=== PATIENT | male | born 1970 | race Caucasian/White ===

== ENCOUNTER 2018-09-02 19:51 | Inpatient (IN) ==
[2018-09-02] MEDS ORDERED: CloNIDine Tab 0.1 MG TABLET PO ONE (19:57)
[2018-09-02] MEDS ORDERED: NICOTINE 21 MG /DAY PATCH TRANSDERM ONE (19:59)
[2018-09-02] MEDS ORDERED: FUROSEMIDE 10 MG/1 ML - 4 ML IVP ONE (19:59)
--- NOTE | 2018-09-02 19:59 | PDOC ---
Gen Adult / Medical Screen HPI - General Chief Complaint: General Medical Stated Complaint: REACTION TO MEDICATION, DYSPNEA Date Seen by Provider: 09/02/18 Time Seen by Provider: 19:53 Source: POSITIVE: Patient Exam Limitations: POSITIVE: No limitations Nurse's Notes Reviewed & Considered: Yes - History of Present Illness Initial Comments: This is a well-developed, well-nourished, 48-year-old male, complaining of chest pain, shortness of breath, and swelling. Patient developed swelling of his extremities, particularly his lower extremities and abdomen on Sunday. On Sunday he began to develop shortness of breath which has gotten worse. He now has chest pain that he describes as pressure, swelling to the xiphoid process, some increased anxiety, no headache, no sore throat, he does have a cough, no nausea vomiting or diarrhea, no hematuria or dysuria but decreased urine output. Approximately a month and a half ago patient was started on lisinopril and metformin. Blood pressure tonight is 199/140. Body Location Affected: REPORTS: Lower Extremity (L), Lower Extremity (R), Chest , Abdomen Timing: REPORTS: Gradual Duration: <1 week Similar Symptoms Previously: No Recent Care Received: REPORTS: Denies Any Prior Injuries Related to Current Complaint?: No - Patient Home Medications Home Medications: Home Medications albuterol sulfate HFA 90 mcg/actuation aerosol inhaler 1 puff INH Q4H #8 g 07/02 budesonide-formoterol HFA 160 mcg-4.5 mcg/actuation aerosol inhaler 2 puff INH BID #10.2 g 07/30/18 lisinopril 20 mg tablet 20 mg PO QDAY #30 tab 07/30/18 sertraline 25 mg tablet 25 mg PO QDAY #50 tab 07/30/18 Metformin HCl [Glucophage] 1,000 mg PO BID 09/02/18 - Patient Allergies Allergies/Adverse Reactions: Allergies 3 Allergy/AdvReac Type Severity Reaction Status Date / Time No Known Drug Allergies Allergy NOT Verified 09/02/18 19:52 APPLICABLE Past Medical History - heen HEENT History: Denies History Cardiovascular History: Denies History Respiratory History: Denies History Gastrointestinal History: Denies History Genitourinary History: Kidney Stones Endocrine History: Denies History Musculoskeletal History: Denies History Neurological History: Denies History Blood Disorders: Denies History Psychiatric History: Denies History Cancer History: Denies History History of MDRO: No Alcohol Use: Rarely In the Past 12 Months, Have Used or Abuse Any Substance: None Previous Surgical History: No Significant Family History: No pertinent family hx ROS - Limitations ROS Limitations: No Limitations Constitution: REPORTS: Denies Symptoms Cardiovascular: REPORTS: Chest Pain Respiratory: REPORTS: Cough Non Productive, Shortness Of Breath Neurological: REPORTS: Denies Neuro Symptoms Gastrointestinal: REPORTS: Abdominal Pain Endocrine: REPORTS: Denies Symptoms Musculoskeletal: REPORTS: Lower Extremity Swelling Genitourinary: REPORTS: Other (Decreased urine output) Eyes: REPORTS: Denies Symptoms ENT: REPORTS: Denies Symptoms Skin: REPORTS: Denies Skin Symptoms Lympathic: REPORTS: Denies Lympathic Symptoms Immunologic: POSITIVE: Denies Symptoms Psychiatric: POSITIVE: Anxiety Gen Adult/Medical Screen Exam - General Appearance General Appearance: POSITIVE: Alert, Cooperative, No Evidence of Trauma, Mild Distress - HEENT HEENT: POSITIVE: Head Inspection Nml, Eyes Inspection Nml, Ears Inspection Nml, Nose Inspection Nml, Oral/Dental Inspect. Nml, Pharynx Inspect. Nml, PERRL, EOMI - Pupils Pupil Size: 4 mm: Bilateral - Neck Neck: POSITIVE: Normal Inspection, Thyroid Normal - Respiratory Respiratory: POSITIVE: No Respiratory Distress, Wheezes - Cardiovascular Cardiovascular: POSITIVE: No Murmur, No Gallop, PMI Normal, Tachycardia Peripheral Pulses: Radial (L): 4+ - Abdomen Abdomen: Soft: (All Quadrants), Normal Bowel Sounds: (All Quadrants), Denies Tenderness: (All Quadrants), No Splenomegaly: (All Quadrants), No Hepatomegaly: (All Quadrants), No Guarding: (All Quadrants), No Rebound: (All Quadrants), No Palpable Pulse: (All Quadrants), No Palpabale Mass: (All Quadrants), No Rigidity : (All Quadrants), Distention: (All Quadrants) - Back Back: POSITIVE: Normal Inspection - Neurological / Psychological Mental Status: POSITIVE: Mood Normal, Affect Normal Orientation: POSITIVE: Oriented x 3 - Skin Skin: POSITIVE: Normal Color, Warm, Dry, No Rash - Extremities Extremity: Non-Tender: (All Extremities), Normal ROM: (All Extremities), Normal Inspection: (All Extremities), Pelvis Stable: (All Extremities) Procedures - Laceration/Wound Repair Did patient have a laceration repair: No Gen Adlt/Medical Scrn Progress - Results Reviewed by me Xrays/CTs/US Reviewed by me: Yes Discussed with Radiologist: Yes Lab Results Reviewed by Me: Yes CBC and BMP: 09/02/18 20:07 09/02/18 20:07 Lab Results:: Laboratory Results 3 09/02/18 09/02/18 09/02/18 20:07 20:07 20:07 WBC 9.78 RBC 5.71 Hgb 17.3 Hct 52.5 H MCV 91.9 H MCH 30.3 MCHC 33.0 RDW Std Deviation 49.3 RDW Coeff of Yennifer 14.8 H Plt Count 265 MPV 11.8 Immature Gran % (Auto) 0.2 Neut % (Auto) 62.9 Lymph % (Auto) 24.0 Dare % (Auto) 9.6 Eos % (Auto) 2.6 Baso % (Auto) 0.7 Immature Gran # (Auto) 0.02 Neut # (Auto) 6.15 Lymph # (Auto) 2.35 Dare # (Auto) 0.94 H Eos # (Auto) 0.25 Baso # (Auto) 0.07 WBC Morphology Comment Normal morphology Plt Morphology Comment Normal morphology RBC Morph Comment Normal morphology D-Dimer 0.74 H Sodium 141 Potassium 4.0 Chloride 109 Carbon Dioxide 24 Anion Gap 8 BUN 19 Creatinine 1.3 Estimated GFR 59 BUN/Creatinine Ratio 14.61 Glucose 151 H Calculated Osmolality 296.0 H Lactic Acid Calcium 8.6 L Magnesium 2.0 Total Bilirubin 0.6 AST 38 ALT 69 Alkaline Phosphatase 56 CK-MB (CK-2) Troponin I Handheld C-Reactive Protein 0.6 NT-Pro-B Natriuret Pep 2790 H Total Protein 6.6 Albumin 3.9 Globulin 2.7 Albumin/Globulin Ratio 1.40 TSH Ur Collection Type Urine Color Urine Clarity Urine pH Ur Specific [place] Urine Protein Urine Glucose (UA) Urine Ketones Urine Occult Blood Urine Nitrate Urine Bilirubin Urine Urobilinogen Ur Leukocyte Esterase Urine RBC Urine WBC Ur Squamous Epith Cells Ur Renal Epithelial Cell Urine Crystals Urine Bacteria Urine Casts Urine Mucus Urine Trichomonas Urine Yeast Ur Culture Indicated? 3 09/02/18 09/02/18 09/02/18 20:07 20:07 20:07 WBC RBC Hgb Hct MCV MCH MCHC RDW Std Deviation RDW Coeff of Yennifer Plt Count MPV Immature Gran % (Auto) Neut % (Auto) Lymph % (Auto) Dare % (Auto) Eos % (Auto) Baso % (Auto) Immature Gran # (Auto) Neut # (Auto) Lymph # (Auto) Dare # (Auto) Eos # (Auto) Baso # (Auto) WBC Morphology Comment Plt Morphology Comment RBC Morph Comment D-Dimer Sodium Potassium Chloride Carbon Dioxide Anion Gap BUN Creatinine Estimated GFR BUN/Creatinine Ratio Glucose Calculated Osmolality Lactic Acid 2.1 Calcium Magnesium Total Bilirubin AST ALT Alkaline Phosphatase CK-MB (CK-2) 1.99 Troponin I Handheld 0.030 C-Reactive Protein NT-Pro-B Natriuret Pep Total Protein Albumin Globulin Albumin/Globulin Ratio TSH 3.00 Ur Collection Type Urine Color Urine Clarity Urine pH Ur Specific [place] Urine Protein Urine Glucose (UA) Urine Ketones Urine Occult Blood Urine Nitrate Urine Bilirubin Urine Urobilinogen Ur Leukocyte Esterase Urine RBC Urine WBC Ur Squamous Epith Cells Ur Renal Epithelial Cell Urine Crystals Urine Bacteria Urine Casts Urine Mucus Urine Trichomonas Urine Yeast Ur Culture Indicated? 3 09/02/18 20:47 WBC RBC Hgb Hct MCV MCH MCHC RDW Std Deviation RDW Coeff of Yennifer Plt Count MPV Immature Gran % (Auto) Neut % (Auto) Lymph % (Auto) Dare % (Auto) Eos % (Auto) Baso % (Auto) Immature Gran # (Auto) Neut # (Auto) Lymph # (Auto) Dare # (Auto) Eos # (Auto) Baso # (Auto) WBC Morphology Comment Plt Morphology Comment RBC Morph Comment D-Dimer Sodium Potassium Chloride Carbon Dioxide Anion Gap BUN Creatinine Estimated GFR BUN/Creatinine Ratio Glucose Calculated Osmolality Lactic Acid Calcium Magnesium Total Bilirubin AST ALT Alkaline Phosphatase CK-MB (CK-2) Troponin I Handheld C-Reactive Protein NT-Pro-B Natriuret Pep Total Protein Albumin Globulin Albumin/Globulin Ratio TSH Ur Collection Type Voided specimen Urine Color Yellow Urine Clarity Clear Urine pH 5.5 Ur Specific [place] 1.025 Urine Protein >300 A Urine Glucose (UA) Negative Urine Ketones Negative Urine Occult Blood Negative Urine Nitrate Negative Urine Bilirubin Negative Urine Urobilinogen 0.2 Ur Leukocyte Esterase Negative Urine RBC None Urine WBC None Ur Squamous Epith Cells None Ur Renal Epithelial Cell None Urine Crystals Few Urine Bacteria None Urine Casts None Urine Mucus Moderate Urine Trichomonas None Urine Yeast None Ur Culture Indicated? Culture not set EKG Interpreted/Reviewed By Me:: Yes (Sinus Tach, 105bpm, no ST elevation) EKG Interpretation:: POSITIVE: Abnormal EKG - Patient's Progress Re-Examine Time: 21:37 Status: POSITIVE: Improved - Consult Consult (If Yes, Name of Consulting MD & Time Called): Yes (Dr. Mazariegos, 2130hrs) Consulting MD will see pt:: POSITIVE: [facility] [place] Admit Counseled: POSITIVE: Patient, RE: Lab Results, RE: Radiology Results, RE: DX, RE : Need for F/U Patient Care Time - Estimated PCT Patient Care Time (In Minutes): 45 Vital Signs - Recent Vital Signs Vital Signs: Vital Signs (Last 8 hours) Temp Pulse Pulse Resp BP Pulse Ox 09/02/18 20:22 95 18 99 09/02/18 20:21 94 18 99 09/02/18 19:51 97.4 F 114 H 20 199/141 97 - VS Reviewed Vital Signs Reviewed: Yes Discharge Clinical Impression: CHF (congestive heart failure) Discharge Disposition: Admit to Inpatient Condition: Stable Follow Up With: JUWAN JUSTICE [Primary Care Provider] - Date Decision to Admit to Inpatient: 09/02/18 Time Decision to Admit to Inpatient: 21:38
[2018-09-02] MEDS ORDERED: IPRATROPIUM/ALBUTEROL SULFATE 3 ML NEB NEB ONE (20:05)
[2018-09-02 20:12] LABS: BASOPHILS # (AUTO) 0.07 10*3/UL; BASOPHILS % (AUTO) 0.7 % (0-1); EOSINOPHILS # (AUTO) 0.25 10*3/UL; EOSINOPHILS % (AUTO) 2.6 % (0-8); Hematocrit [HCT] 52.5 % (42.0-52.0); Hemoglobin [HGB] 17.3 g/dL (14.0-18.0); LYMPHOCYTES # (AUTO) 2.35 10*3/uL; MEAN CORPUSCULAR HEMOGLOBIN 30.3 PG (27-31); MEAN CORPUSCULAR VOLUME 91.9 FL (80-90); MEAN PLATELET VOLUME 11.8 FL (7.4-12.2); MONOCYTES # (AUTO) 0.94 10*3/UL (0.3-0.8); MONOCYTES % (AUTO) 9.6 % (5-15); NEUTROPHILS # (AUTO) 6.15 10*3/UL; NEUTROPHILS % (AUTO) 62.9 % (50-80); RED BLOOD COUNT 5.71 10^6/uL (4.70-6.10)
--- NOTE | 2018-09-02 20:12 | EKG ---
[address] [address] Measurements Intervals [place] Rate: 105 P: 61 MO: 179 QRS: 28 QRSD: 110 T: 45 QT: 370 QTc: 431 Interpretive Statements SINUS TACHYCARDIA LEFT ATRIAL ENLARGEMENT No previous ECG available for comparison Electronically Signed On 09-03-18 16:08:40 MST by Darrick Medellin [email or web address]
[2018-09-02 20:15] LABS: PLATELET MORPHOLOGY COMMENT NORMAL MORPHOLOGY (NORM); RBC MORPHOLOGY COMMENT NORMAL MORPHOLOGY (NORM); WBC MORPHOLOGY COMMENT NORMAL MORPHOLOGY (NORM)
[2018-09-02 20:23] LABS: BUN/CREATININE RATIO 14.61 (6-20); SERUM ALBUMIN 3.9 g/dL (3.5-4.8)
[2018-09-02 20:45] LABS: BILIRUBIN,URINE NEGATIVE (NEG); CLARITY,URINE CLEAR (CLEAR); COLOR,URINE YELLOW (Y); GLUCOSE, URINE (UA) NEGATIVE (NEG); OCCULT BLOOD,URINE NEGATIVE (NEG); PH,URINE 5.5 (5.0-8.5); PROTEIN,URINE >300 mg/dl (NEG); UROBILINOGEN,URINE 0.2 EU/dL (0.2)
[2018-09-02 20:47] LABS: URINE CRYSTALS FEW; URINE SAMPLE TYPE VOIDED SPECIMEN
--- NOTE | 2018-09-02 20:52 | DI ---
XR CXR 1VW,09/02/2018 7:59 PM: Clinical History: Shortness of breath Previous Exam: None at this facility. Findings: A single frontal radiograph of the chest is obtained, and demonstrate clear lungs. The cardiomediasti num is prominent. The bony thorax is unremarkable. Impression: Cardiomegaly otherwise unremarkable.
--- NOTE | 2018-09-02 21:13 | DI ---
EXAM: CT Angiography Chest With Intravenous Contrast CLINICAL HISTORY: Shortness of breath TECHNIQUE: Axial computed tomographic angiography images of the chest with intravenous contrast using pulmonary embolism protocol. MIP reconstructed images were created and reviewed. COMPARISON: No relevant prior studies available. FINDINGS: Pulmonary arteries: No evidence of pulmonary embolus. Aorta: No thoracic aortic aneurysm. Lungs: Minimal pulmonary vascular congestion. Atelectasis and scarring noted within the lingula and lung bases. No mass. Pleural space: Unremarkable. No significant effusion. No pneumothorax. Heart: Trace pericardial effusion. No evidence of RV dysfunction. Bones/joints: No acute fracture. No dislocation. Soft tissues: Unremarkable. Lymph nodes: Subcentimeter mediastinal and hilar lymph nodes, likely reactive. Intraperitoneal space: Trace ascites noted within the upper abdomen. IMPRESSION: Minimal pulmonary vascular congestion.
--- NOTE | 2018-09-02 22:54 | PDOC ---
HPI - History of Present Illness Date of Service: 09/02/18 Time of Service: 22:49 Chief Complaint: Shortness of breath History of Present Illness: This very pleasant 48-year-old male who recently has been diagnosed with diabetes mellitus type II, hypertension, probable obstructive sleep apnea, amongst other issues. He comes in tonight stating that on Sunday he noticed that he was having increased leg swelling and increased shortness of breath. His symptoms have persisted and he developed some chest pressure he thinks from fluid build up going into his abdomen and into his chest. In the emergency room he had a chest x-ray, CTA of the chest, and a brain natruretic peptide which was elevated and suggestive of congestive heart failure. He was given Lasix and urinated over 800 mL in the emergency room and felt better after that. Due to this constellation of symptoms, I was asked to admit the patient. He does smoke. He has hypertension, diabetes, high cholesterol, and a positive family history for coronary artery disease. He denies any nausea or vomiting with all this. He's never had symptoms like this before. He states that couple months back, he was told by his father that he might have sleep apnea so the patient did arrange testing but the first test did not go well so he has that rescheduled for this Sunday. He is not sure what made him feel worse but did note again that he was quite short of breath and noticed that it seemed to be worse with increasing fluid in his lower extremities and into his chest region. He denied orthopnea at home, but he sleeps on his abdomen. Shortness breath this seemed to be worse with exertion. Past Medical History Medical History: 1. Hypertension. 2. Recently diagnosed diabetes mellitus type II. 3. Hypercholesteremia. 4. Tobacco abuse. 5. Family history of coronary artery disease Surgical History: 1. [place] teeth pulled. 2. Nephrolithiasis with ureteral stents placed which were eventually removed. Pertinent Family History: Significant for coronary artery disease and his mother after a CABG at age 56 Past Social History: Smokes pack per day. . Has children that are healthy. 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 Does not drink significant amounts of alcohol. Tobacco Use: Current Every Day Smoker Do you dip or chew tobacco: No In the Past 12 Months, Have Used or Abuse Any of the Following Substance: None Alcohol Use: Occasionally Medication / Allergies Home Medications: Home Medications 3 Medication Instructions Recorded Confirmed Type albuterol sulfate HFA 90 1 puff INH Q4H #8 g 07/02/18 09/02/18 Rx mcg/actuation aerosol inhaler budesonide-formoterol HFA 160 2 puff INH BID #10.2 g 07/30/18 09/02/18 Rx mcg-4.5 mcg/actuation aerosol inhaler lisinopril 20 mg tablet 20 mg PO QDAY #30 tab 07/30/18 09/02/18 Rx sertraline 25 mg tablet 25 mg PO QDAY #50 tab 07/30/18 09/02/18 Rx Metformin HCl [Glucophage] 1,000 mg PO BID 09/02/18 09/02/18 History Allergies/Adverse Reactions: Allergies 3 Allergy/AdvReac Type Severity Reaction Status Date / Time No Known Drug Allergies Allergy NOT Verified 09/02/18 19:52 APPLICABLE Review of Systems - Review of Systems All Systems: Reviewed & No Additional Complaints Except as Stated (I did a 12 point review systems was negative other than that discussed in history present illness and that noted below.) - Respiratory Respiratory: REPORTS: Dyspnea with Exertion, See HPI - Cardiovascular Cardiovascular: REPORTS: Chest Pain (Chest pressure here tonight, better after diuresis) - Additonal Details Additional ROS Details: Has had erectile dysfunction symptoms. Exam - Vitals Vital Signs: Vital Signs Temperature 97.4 F Temperature Source Temporal Artery Scan Pulse Rate [Pulse Oximeter] 114 Pulse Rate 95 Respiratory Rate 18 Blood Pressure [Left Arm] 199/141 Pulse Ox 99 Oxygen Delivery Method Room Air Height 5 ft 8 in Weight 250 lb - General General Appearance: No Acute Distress, Cooperative, Obese - Head Head Exam: Normal Inspection, Normocephalic, Atraumatic - Eye Eye Exam: POSITIVE: No Scleral Icterus - ENT ENT Exam: POSITIVE: Mucous Membranes Moist - Neck Neck Exam: Normal Inspection, No Lymphadenopathy, No Thyromegaly, JVP is not Raised - Respiratory Respiratory Exam: POSITIVE: Breathing Non Labored, Normal to Percussion and Palpation, Decreased Breath Sounds (In the bases bilaterally) - Cardiovascular Cardiovascular Exam: POSITIVE: No Murmur, No Clicks, No Gallops, No Rubs, Tachycardia, No JVD, +S3 - GI/Abdominal GI/Abdominal Exam: POSITIVE: Normal Bowel Sounds, Non Tender, Non Distended, Soft - Rectal Rectal Exam: POSITIVE: Deferred - External Exam: POSITIVE: Deferred Exam: POSITIVE: Deferred - Extremities Extremities Exam: POSITIVE: No Clubbing Present, No Cyanosis Present, +2 Edema - Back Back Exam: POSITIVE: No CVA Tenderness - Neurological Neurological Exam: POSITIVE: Alert, Oriented x 3, No Facial Droop, Speech Intact / Clear, Moves All Extremities Equally - Psychiatric Psychiatric Exam: POSITIVE: Normal Affect, Normal Mood Results - Labs CBC and BMP: 09/02/18 20:07 09/02/18 20:07 Additional Lab Results: Laboratory Results 09/02/18 09/02/18 09/02/18 Range/Units 20:07 20:07 20:07 WBC 9.78 (4.8-10.8) 10^3/uL RBC 5.71 (4.70-6.10) 10^6/uL Hgb 17.3 (14.0-18.0) g/dL Hct 52.5 H (42.0-52.0) % MCV 91.9 H (80-90) FL MCH 30.3 (27-31) PG MCHC 33.0 (33-37) g/dL RDW Std Deviation 49.3 (39-50) fL RDW Coeff of Yennifer 14.8 H (11.5-14.5) % Plt Count 265 (140-350) 10*3/uL MPV 11.8 (7.4-12.2) FL Immature Gran % (Auto) 0.2 (0-5) % Neut % (Auto) 62.9 (50-80) % Lymph % (Auto) 24.0 (10-50) % Baca % (Auto) 9.6 (5-15) % Eos % (Auto) 2.6 (0-8) % Baso % (Auto) 0.7 (0-1) % Immature Gran # (Auto) 0.02 10*3/UL Neut # (Auto) 6.15 10*3/UL Lymph # (Auto) 2.35 10*3/uL Baca # (Auto) 0.94 H (0.3-0.8) 10*3/UL Eos # (Auto) 0.25 10*3/UL Baso # (Auto) 0.07 10*3/UL WBC Morphology Comment Normal morphology (NORM) Plt Morphology Comment Normal morphology (NORM) RBC Morph Comment Normal morphology (NORM) D-Dimer 0.74 H (0.00-0.59) mg/L Sodium 141 (135-145) meq/L Potassium 4.0 (3.8-5.2) meq/L Chloride 109 (98-112) meq/L Carbon Dioxide 24 (23-33) meq/L Anion Gap 8 (5-20) BUN 19 (7-22) mg/dL Creatinine 1.3 (0.70-1.50) mg/dL Estimated GFR 59 (>60 ml/min/1.73m(2)) BUN/Creatinine Ratio 14.61 (6-20) Glucose 151 H (78-110) mg/dL Calculated Osmolality 296.0 H (267-292) mOsm/kg Lactic Acid (0.70-2.10) MMOL/L Calcium 8.6 L (8.7-10.7) mg/dL Magnesium 2.0 (1.6-2.4) mg/dL Total Bilirubin 0.6 (0.3-1.2) mg/dL AST 38 (21-57) IU/L ALT 69 (21-72) IU/L Alkaline Phosphatase 56 (38-126) IU/L CK-MB (CK-2) (0.00-5.00) NG/ML Troponin I Handheld (< 0.040) ng/mL C-Reactive Protein 0.6 (0.0-0.9) mg/dL NT-Pro-B Natriuret Pep 2790 H (0-125) PG/ML Total Protein 6.6 (6.1-8.0) g/dL Albumin 3.9 (3.5-4.8) g/dL Globulin 2.7 (2.50-4.10) g/dL Albumin/Globulin Ratio 1.40 (1.3-2.0) mg/g TSH (0.2700-4.2000) uIU/mL Ur Collection Type Urine Color (Y) Urine Clarity (CLEAR) Urine pH (5.0-8.5) Ur Specific Gardner (1.005-1.030) Urine Protein (NEG) mg/dl Urine Glucose (UA) (NEG) mg/dL Urine Ketones (NEG) Urine Occult Blood (NEG) Urine Nitrate (NEG) Urine Bilirubin (NEG) Urine Urobilinogen (0.2) EU/dL Ur Leukocyte Esterase (NEG) Urine RBC (NONE) /hpf Urine WBC (NONE) Ur Squamous Epith Cells (NONE) Ur Renal Epithelial Cell (NONE) Urine Crystals Urine Bacteria (NONE) Urine Casts (NONE) Urine Mucus (NONE) Urine Trichomonas (NONE) Urine Yeast (NONE) Ur Culture Indicated? 09/02/18 09/02/18 09/02/18 Range/Units 20:07 20:07 20:07 WBC (4.8-10.8) 10^3/uL RBC (4.70-6.10) 10^6/uL Hgb (14.0-18.0) g/dL Hct (42.0-52.0) % MCV (80-90) FL MCH (27-31) PG MCHC (33-37) g/dL RDW Std Deviation (39-50) fL RDW Coeff of Yennifer (11.5-14.5) % Plt Count (140-350) 10*3/uL MPV (7.4-12.2) FL Immature Gran % (Auto) (0-5) % Neut % (Auto) (50-80) % Lymph % (Auto) (10-50) % Baca % (Auto) (5-15) % Eos % (Auto) (0-8) % Baso % (Auto) (0-1) % Immature Gran # (Auto) 10*3/UL Neut # (Auto) 10*3/UL Lymph # (Auto) 10*3/uL [place] # (Auto) (0.3-0.8) 10*3/UL Eos # (Auto) 10*3/UL Baso # (Auto) 10*3/UL WBC Morphology Comment (NORM) Plt Morphology Comment (NORM) RBC Morph Comment (NORM) D-Dimer (0.00-0.59) mg/L Sodium (135-145) meq/L Potassium (3.8-5.2) meq/L Chloride (98-112) meq/L Carbon Dioxide (23-33) meq/L Anion Gap (5-20) BUN (7-22) mg/dL Creatinine (0.70-1.50) mg/dL Estimated GFR (>60 ml/min/1.73m(2)) BUN/Creatinine Ratio (6-20) Glucose (78-110) mg/dL Calculated Osmolality (267-292) mOsm/kg Lactic Acid 2.1 (0.70-2.10) MMOL/L Calcium (8.7-10.7) mg/dL Magnesium (1.6-2.4) mg/dL Total Bilirubin (0.3-1.2) mg/dL AST (21-57) IU/L ALT (21-72) IU/L Alkaline Phosphatase (38-126) IU/L CK-MB (CK-2) 1.99 (0.00-5.00) NG/ML Troponin I Handheld 0.030 (< 0.040) ng/mL C-Reactive Protein (0.0-0.9) mg/dL NT-Pro-B Natriuret Pep (0-125) PG/ML Total Protein (6.1-8.0) g/dL Albumin (3.5-4.8) g/dL Globulin (2.50-4.10) g/dL Albumin/Globulin Ratio (1.3-2.0) mg/g TSH 3.00 (0.2700-4.2000) uIU/mL Ur Collection Type Urine Color (Y) Urine Clarity (CLEAR) Urine pH (5.0-8.5) Ur Specific Gardner (1.005-1.030) Urine Protein (NEG) mg/dl Urine Glucose (UA) (NEG) mg/dL Urine Ketones (NEG) Urine Occult Blood (NEG) Urine Nitrate (NEG) Urine Bilirubin (NEG) Urine Urobilinogen (0.2) EU/dL Ur Leukocyte Esterase (NEG) Urine RBC (NONE) /hpf Urine WBC (NONE) Ur Squamous Epith Cells (NONE) Ur Renal Epithelial Cell (NONE) Urine Crystals Urine Bacteria (NONE) Urine Casts (NONE) Urine Mucus (NONE) Urine Trichomonas (NONE) Urine Yeast (NONE) Ur Culture Indicated? 09/02/18 Range/Units 20:47 WBC (4.8-10.8) 10^3/uL RBC (4.70-6.10) 10^6/uL Hgb (14.0-18.0) g/dL Hct (42.0-52.0) % MCV (80-90) FL MCH (27-31) PG MCHC (33-37) g/dL RDW Std Deviation (39-50) fL RDW Coeff of Yennifer (11.5-14.5) % Plt Count (140-350) 10*3/uL MPV (7.4-12.2) FL Immature Gran % (Auto) (0-5) % Neut % (Auto) (50-80) % Lymph % (Auto) (10-50) % Baca % (Auto) (5-15) % Eos % (Auto) (0-8) % Baso % (Auto) (0-1) % Immature Gran # (Auto) 10*3/UL Neut # (Auto) 10*3/UL Lymph # (Auto) 10*3/uL [place] # (Auto) (0.3-0.8) 10*3/UL Eos # (Auto) 10*3/UL Baso # (Auto) 10*3/UL WBC Morphology Comment (NORM) Plt Morphology Comment (NORM) RBC Morph Comment (NORM) D-Dimer (0.00-0.59) mg/L Sodium (135-145) meq/L Potassium (3.8-5.2) meq/L Chloride (98-112) meq/L Carbon Dioxide (23-33) meq/L Anion Gap (5-20) BUN (7-22) mg/dL Creatinine (0.70-1.50) mg/dL Estimated GFR (>60 ml/min/1.73m(2)) BUN/Creatinine Ratio (6-20) Glucose (78-110) mg/dL Calculated Osmolality (267-292) mOsm/kg Lactic Acid (0.70-2.10) MMOL/L Calcium (8.7-10.7) mg/dL Magnesium (1.6-2.4) mg/dL Total Bilirubin (0.3-1.2) mg/dL AST (21-57) IU/L ALT (21-72) IU/L Alkaline Phosphatase (38-126) IU/L CK-MB (CK-2) (0.00-5.00) NG/ML Troponin I Handheld (< 0.040) ng/mL C-Reactive Protein (0.0-0.9) mg/dL NT-Pro-B Natriuret Pep (0-125) PG/ML Total Protein (6.1-8.0) g/dL Albumin (3.5-4.8) g/dL Globulin (2.50-4.10) g/dL Albumin/Globulin Ratio (1.3-2.0) mg/g TSH (0.2700-4.2000) uIU/mL Ur Collection Type Voided specimen Urine Color Yellow (Y) Urine Clarity Clear (CLEAR) Urine pH 5.5 (5.0-8.5) Ur Specific Gardner 1.025 (1.005-1.030) Urine Protein >300 A (NEG) mg/dl Urine Glucose (UA) Negative (NEG) mg/dL Urine Ketones Negative (NEG) Urine Occult Blood Negative (NEG) Urine Nitrate Negative (NEG) Urine Bilirubin Negative (NEG) Urine Urobilinogen 0.2 (0.2) EU/dL Ur Leukocyte Esterase Negative (NEG) Urine RBC None (NONE) /hpf Urine WBC None (NONE) Ur Squamous Epith Cells None (NONE) Ur Renal Epithelial Cell None (NONE) Urine Crystals Few Urine Bacteria None (NONE) Urine Casts None (NONE) Urine Mucus Moderate (NONE) Urine Trichomonas None (NONE) Urine Yeast None (NONE) Ur Culture Indicated? Culture not set - EKG Data -: EKG Interpreted by Me Rate: Tachycardia EKG Shows Normal: Sinus Rhythm - EKG Data EKG Interpretation: Other (The P wave is inverted in V1 and somewhat enlarged suggesting atrial enlargement) - Imaging Status: Image Reviewed by Me (Chest x-ray shows a globular heart, large but it is a portable film. The CT scan on my view shows evidence of pulmonary vascular congestion in the bases.) Assessment and Plan - Patient Problems (1) CHF (congestive heart failure) Current Visit: Yes Status: Acute Code(s): I50.9 - Heart failure, unspecified Qualifiers: Heart failure type: unspecified Heart failure chronicity: acute Qualified Code(s): I50.9 - Heart failure, unspecified (2) Tobacco abuse Current Visit: Yes Status: Acute Code(s): Z72.0 - Tobacco use (3) Tobacco abuse counseling Current Visit: Yes Status: Acute Code(s): Z71.6 - Tobacco abuse counseling (4) Obesity Current Visit: Yes Status: Acute Code(s): E66.9 - Obesity, unspecified Qualifiers: Obesity type: due to excess calories Obesity classification: adult class 2 (BMI 35 - 39.9) Serious obesity comorbidity presence: with serious comorbidity Body mass index: BMI 38.0-38.9 Qualified Code(s): E66.01 - Morbid (severe) obesity due to excess calories; Z68.38 - Body mass index (BMI) 38.0-38.9, adult (5) Diabetes mellitus Current Visit: No Status: Acute Code(s): E11.9 - Type 2 diabetes mellitus without complications Qualifiers: Diabetes mellitus type: type 2 Diabetes mellitus usp insulin use: without usp use Diabetes mellitus complication status: without complication Qualified Code(s): E11.9 - Type 2 diabetes mellitus without complications (6) HTN (hypertension) Current Visit: Yes Status: Acute Code(s): I10 - Essential (primary) hypertension Qualifiers: Hypertension type: essential hypertension Qualified Code(s): I10 - Essential (primary) hypertension (7) Hyperlipidemia Current Visit: Yes Status: Acute Onset Date: 11/07/12 Code(s): E78.5 - Hyperlipidemia, unspecified Qualifiers: Hyperlipidemia type: mixed hyperlipidemia Qualified Code(s): E78.2 - Mixed hyperlipidemia (8) Chest pain Current Visit: Yes Status: Acute Code(s): R07.9 - Chest pain, unspecified Qualifiers: Chest pain type: unspecified Qualified Code(s): R07.9 - Chest pain, unspecified - Assessment / Plan Additional Assessment/Plan Details: The patient has acute congestive heart failure which is probably right-sided and left-sided based on presentation. He has pulmonary vascular congestion, peripheral edema, an S3 on exam, and warrants a rule out for myocardial infarction and also a stress test to check for coronary artery disease. He may eventually need a heart catheterization but I like to see what his stress test shows first. Diuresis with Lasix. I think he'll need IV doses to start out with. Will replace potassium along with Lasix as well. Continue lisinopril. With congestive heart failure hold off on metformin and use insulin and blood sugar checks. I spoke with the patient a lot about diet, exercise, and lifestyle changes. I spent approximately 25 minutes at bedside counseling about lifestyle changes. I think this ultimately would help the patient eliminate a lot of his medical issues. Specifically, I think the patient would do well to try and quit smoking. In addition, he states that he eats a breakfast from [employer], and then eats a big Mac or some sort of [employer] meal. He does eat [employer] sandwiches frequently as well. Eventually an echocardiogram should be done. Labs in a.m. We did inform the patient that he has diabetes mellitus type II cirrhosis some concern that it could be prediabetes but his hemoglobin A1c is diagnostic. I agree with sleep study, but depending on the progression of this hospital stay that may have to be rescheduled. May need to add another antihypertensive agent. Hold off on beta blockers the patient seems to be about class II-III congestive heart failure with this presentation and like patient to get out of acute congestive heart failure first. Beta martin may be reasonable. However he also has ED symptoms and this could make it worse. Plan to look for myocardial infarction, conduct chemical stress test to look for coronary artery disease, and diuresis, was discussed with the patient, and he agreed with the plan. Initially he would like to try nicotine patches for smoking cessation here.
[2018-09-02] MEDS ORDERED: ALBUTEROL SULFATE 8.5 GM HFA INHALER INH PRN (23:08)
[2018-09-02] MEDS ORDERED: ASPIRIN 81 MG (BABY) CHEWABLE TABLET PO ONE (23:08)
[2018-09-02] MEDS ORDERED: LIDOCAINE W/ SODIUM BICARB 0.5 ML SYR SUBD PRN (23:08)
[2018-09-02] MEDS ORDERED: CALCIUM CARBONATE 500 MG (TUMS) CHEWABLE TABLET PO PRN (23:08)
[2018-09-02] MEDS ORDERED: ONDANSETRON 4 MG/2 ML VIAL IVP PRN (23:08)
[2018-09-02] MEDS ORDERED: ENOXAPARIN SODIUM 80 MG/0.8 ML SYRINGE SUBCUT SCH (23:08)
[2018-09-03] MEDS ORDERED: Influenza 18-19 Vaccine (6mo+) 60 MCG/0.5 ML SYRINGE IM ONE ×2 (06:37→07:09)
[2018-09-03 06:58] LABS: CHOL/HDL RATIO 6.8 RATIO (0-4.0)
[2018-09-03] MEDS: FUROSEMIDE 10 MG/1 ML - 4 ML IVP SCH ×2 (07:46→13:42)
[2018-09-03] MEDS: POTASSIUM CHLORIDE 20 MEQ TAB PO SCH (08:56)
[2018-09-03] MEDS: Sertraline Tab 50 MG TAB PO SCH (08:56)
[2018-09-03] MEDS: NICOTINE 21 MG /DAY PATCH TRANSDERM SCH (08:57)
[2018-09-03] MEDS: ASPIRIN 81 MG (BABY) CHEWABLE TABLET PO SCH (08:57)
[2018-09-03] MEDS: ENOXAPARIN SODIUM 40 MG/0.4 ML SYRINGE SUBCUT SCH (08:57)
[2018-09-03] MEDS ORDERED: Non-Formulary Drug (Budesonide/Formoterol Fumarate [Symbicort 160-4.5 Mcg Inhaler] 2 PUFF) INH SCH ×2 (09:00→19:00)
[2018-09-03] MEDS ORDERED: LISINOPRIL 20 MG TABLET PO SCH (09:00)
--- NOTE | 2018-09-03 09:05 | PDOC(PROG) ---
Date of Service: 09/03/18 Time of Service: 09:00 Interval History: Subjective Patient came into the hospital because of for swelling in his legs. This been going on for maybe for a few days before he came in. He said he was recently diagnosed with high blood pressure and diabetes. For diabetes he was gradually increasing his metformin. He is on lisinopril for high blood pressure. However because of the swelling he quit taking all of his medication last Sunday. He did feel that there is some tightness in the ribs. Today he does not have the same tightness that he had when he came in. He feels better. There was no chest pain. Objective : Data - Labs CBC and BMP: 09/02/18 20:07 09/02/18 20:07 Objective : Exam - General General Appearance: No Acute Distress, Cooperative, Obese - Head Head Exam: Normal Inspection - Eye Eye Exam: Normal Appearance - ENT ENT Exam: Normal Exam - Neck Neck Exam: Normal Inspection - Respiratory Respiratory Exam: Clear to Auscultation - Bilaterally - Cardiovascular Cardiovascular Exam: RRR - GI/Abdominal GI/Abdominal Exam: Normal Bowel Sounds, Non Tender, Non Distended, Soft, No Organomegaly - Rectal Rectal Exam: Deferred - External Exam: Deferred Exam: Deferred - Extremities Extremities Exam: +2 Edema - Back Back Exam: Normal Inspection - Neurological Neurological Exam: Alert, Oriented x 3, CN II-XII Intact, No Facial Droop, Speech Intact / Clear, Moves All Extremities Equally - Psychiatric Psychiatric Exam: Normal Affect - Integumentary Integumentary Exam: Normal Color Assessment and Plan - Patient Problems (1) CHF (congestive heart failure) Current Visit: Yes Status: Acute Comment: We don't have an echocardiogram here. He will probably need it as an outpatient. Meanwhile we'll treat him clinically as congestive heart failure. Continue Lasix. Put him on low-salt diet. Continue lisinopril. He is scheduled to have another sleep study on Sunday. Code(s): I50.9 - Heart failure, unspecified Qualifiers: Heart failure type: unspecified Heart failure chronicity: acute Qualified Code(s): I50.9 - Heart failure, unspecified (2) HTN (hypertension) Current Visit: Yes Status: Acute Comment: He is on lisinopril and diuretic. I think will watch his blood pressure today and then will decide if need to increase it as an appropriate Code(s): I10 - Essential (primary) hypertension Qualifiers: Hypertension type: essential hypertension Qualified Code(s): I10 - Essential (primary) hypertension (3) Diabetes mellitus Current Visit: No Status: Acute Comment: He Is on sliding scale now. Code(s): E11.9 - Type 2 diabetes mellitus without complications Qualifiers: Diabetes mellitus type: type 2 Diabetes mellitus fdc insulin use: without meterman use Diabetes mellitus complication status: without complication Qualified Code(s): E11.9 - Type 2 diabetes mellitus without complications (4) Tobacco abuse Current Visit: Yes Status: Acute Comment: He is on the nicotine patch Code(s): Z72.0 - Tobacco use (5) Obesity Current Visit: Yes Status: Acute Comment: He need to work on his weight. Code(s): E66.9 - Obesity, unspecified Qualifiers: Obesity type: due to excess calories Obesity classification: adult class 2 (BMI 35 - 39.9) Serious obesity comorbidity presence: with serious comorbidity Body mass index: BMI 38.0-38.9 Qualified Code(s): E66.01 - Morbid (severe) obesity due to excess calories; Z68.38 - Body mass index (BMI) 38.0-38.9, adult (6) Chest pain Current Visit: Yes Status: Acute Comment: Enzymes are negative. He did have the first part of the stress test today. He'll have the resting image tomorrow. Code(s): R07.9 - Chest pain, unspecified Qualifiers: Chest pain type: unspecified Qualified Code(s): R07.9 - Chest pain, unspecified
--- NOTE | 2018-09-03 10:35 | STRESSTEST ---
[facility] Interpretive Statements Patient had lexiscan stress test per protocol, baseline BP was 144/118, heart rate was 104, baseline EKG showed sinus tachycardia with left atrial enlargement, post injection patient did not have symptoms. Maximum BP was 144/118, maximum heart rate was 113, no signifcant EKG changes noted from baseline., Conclusion: No EKG changes noted on the EKG part of lexiscan sterss kacie. await nuclear images. Electronically Signed On 09-04-18 08:20:30 [facility] by Pramod Balderas MD [email or web address]
[2018-09-04 05:55] LABS: BUN/CREATININE RATIO 10.76 (6-20)
[2018-09-04] MEDS: FUROSEMIDE 10 MG/1 ML - 4 ML IVP SCH ×2 (07:18→14:22)
[2018-09-04] MEDS: ENOXAPARIN SODIUM 40 MG/0.4 ML SYRINGE SUBCUT SCH (08:47)
[2018-09-04] MEDS: POTASSIUM CHLORIDE 20 MEQ TAB PO SCH (08:47)
[2018-09-04] MEDS: ASPIRIN 81 MG (BABY) CHEWABLE TABLET PO SCH (08:48)
[2018-09-04] MEDS: Sertraline Tab 50 MG TAB PO SCH (08:48)
[2018-09-04] MEDS: NICOTINE 21 MG /DAY PATCH TRANSDERM SCH (08:53)
[2018-09-04] MEDS ORDERED: LISINOPRIL 20 MG TABLET PO SCH (09:00)
--- NOTE | 2018-09-04 10:15 | PDOC(PROG) ---
Date of Service: 09/04/18 Time of Service: 07:30 Interval History: Subjective Patient feels better. No pain in the chest. Breathing seemed to be fine. Still have swelling in his legs but it's improved compared to when he came in. Denying other symptoms. Objective : Data - Labs CBC and BMP: 09/02/18 20:07 09/04/18 05:15 Objective : Exam - General General Appearance: No Acute Distress, Cooperative, Obese - Head Head Exam: Normal Inspection - Eye Eye Exam: Normal Appearance - ENT ENT Exam: Normal Exam - Neck Neck Exam: Normal Inspection - Respiratory Respiratory Exam: Clear to Auscultation - Bilaterally - Cardiovascular Cardiovascular Exam: RRR - GI/Abdominal GI/Abdominal Exam: Normal Bowel Sounds, Non Tender, Non Distended, Soft, No Organomegaly - Rectal Rectal Exam: Deferred - External Exam: Deferred - Extremities Extremities Exam: +2 Edema - Back Back Exam: Normal Inspection - Neurological Neurological Exam: Alert, Oriented x 3, CN II-XII Intact, No Facial Droop, Speech Intact / Clear, Moves All Extremities Equally - Psychiatric Psychiatric Exam: Normal Affect - Integumentary Integumentary Exam: Normal Color Assessment and Plan - Patient Problems (1) CHF (congestive heart failure) Current Visit: Yes Status: Acute Comment: He is improving. His BNP is down. His weight is improved. We'll continue with IV Lasix. He'll have the resting image today. Code(s): I50.9 - Heart failure, unspecified Qualifiers: Heart failure type: unspecified Heart failure chronicity: acute Qualified Code(s): I50.9 - Heart failure, unspecified (2) HTN (hypertension) Current Visit: Yes Status: Acute Comment: Blood pressure is high today still. I did increase his lisinopril. Continue with the Lasix. The blood pressure still high we may add additional medication. Code(s): I10 - Essential (primary) hypertension Qualifiers: Hypertension type: essential hypertension Qualified Code(s): I10 - Essential (primary) hypertension (3) Tobacco abuse Current Visit: Yes Status: Acute Code(s): Z72.0 - Tobacco use (4) Obesity Current Visit: Yes Status: Acute Comment: He needs to work on his weight. Code(s): E66.9 - Obesity, unspecified Qualifiers: Obesity type: due to excess calories Obesity classification: adult class 2 (BMI 35 - 39.9) Serious obesity comorbidity presence: with serious comorbidity Body mass index: BMI 38.0-38.9 Qualified Code(s): E66.01 - Morbid (severe) obesity due to excess calories; Z68.38 - Body mass index (BMI) 38.0-38.9, adult (5) Chest pain Current Visit: Yes Status: Acute Comment: We'll wait for the stress test results Code(s): R07.9 - Chest pain, unspecified Qualifiers: Chest pain type: unspecified Qualified Code(s): R07.9 - Chest pain, unspecified
[2018-09-04 10:57] VITALS: BP 159/119; RESP 20; TEMP 97.4
[2018-09-04 11:41] VITALS: O2SAT 93
--- NOTE | 2018-09-04 12:32 | DI ---
2 DAY LEXISCAN STRESS & REST MYOCARDIAL PERFUSION SCANS, 09/03/2018 8:00 AM : Clinical History: Chest pain Previous Exam: None at this facility. The patient was stressed by Dr. Princess Tamez The standard Lexiscan protocol was used. Please see the Doctor's report. At the designated time, 35.1 mCi of 99Tc-sestimibi was injected IV. Stress gated tomograms were acquired within one hour of the i njection. For the resting scans, 35.0 mCi was injected IV and resting gated tomograms were acquired in similar fashion. Stress scans were performed on 09/03/2018; the resting scans were performed on 09/04/2018. Quantitative and qualitative analyses were performed. Quantitative analysis was performed with the [place] [facility] [id number] protocols. Very low dose limited CT scans of the chest are o btained through the level of the heart for attenuation correction of the gated stress and rest cardia c SPECT data. Non-attenuated and attenuated scans were processed for review, and the attenuated scans were used for final interpretation of this study. Review of the raw data images and quality assurance inspector files indicate that these series of examinations ar e of excellent quality. There is only 1% rejected beats. Stress and rest left ventricular chamber siz es are slightly dilated. Stress and rest LVEF are 31 % and 24 %, respectively. There are some fixed defects within the anterior apex. There is no reversibility. Wall motion is diffusely hypokinetic with decreased ejection fraction. Transient ischemic dilatation ratio is 1.03, with a normal range up to 1.22 for patients str essed with the Nasim protocol and up to 1.33 for patients stressed with the Lexiscan protocol. The very low dose CT scans through the level of the heart show no coronary artery calcifications. The re is no adenopathy or evidence of lung nodules. Reading: The ventricular volume does appear to be increased, and there is diffuse hypokinesis, but no evidence of ischemia. There is a small fixed defect within the anterior apex. Diffuse hypokinesis with decreased ejection fraction of 24% on rest and 31% on stress.
--- NOTE | 2018-09-04 13:38 | DCSUMMARY ---
Hospitalization Summary Admit Date: 09/02/2018 Discharge Date: 09/04/18 Hospital Course: Transfer diagnoses 1. Congestive heart failure with reduced ejection fraction 2. Uncontrolled hypertension 3. Likely sleep apnea untreated 4. Recently diagnosed type II diabetes 5. Tobacco abuse Hospital course This is a 48 years old male with medical history significant for recently diagnosed diabetes, hypertension and probable obstructive sleep apnea who came into the hospital because of increased leg swelling and shortness of breath. He did describe also some pressure in his chest he thinks from fluid buildup going into his abdomen and to his chest. When he came in to the ER his BNP was 2700. A CTA of the chest was suggestive of vascular congestion. No PE. He was admitted to the hospital admitted by Dr. Dominguez please see his note. He was put on IV Lasix and restarted on lisinopril. He said he was recently put on lisinopril and metformin for both his hypertension and diabetes and he quit taking those last Sunday because of the swelling in his legs. His enzymes were negative. Continued with the Lasix and lisinopril. He had a Lexiscan stress test which showed the fixed defect in the anterior apex but there was diffuse hypokinesia and reduced ejection fraction at 24% at rest and 31% with stress. It was noted also at night he is hypoxic and have evidence of sleep apnea he is needing 4 L of oxygen at night. But not during the daytime he does not need oxygen. Because of the finding on the stress test I did speak with the communication professor Dr. ordonez at [facility] and he suggested transfer for more investigation and management of his heart failure. I spoke with the patient and he agreed to transfer the patient will be transferred once bed is available. Laboratory Results 09/04/18 Range/Units 05:15 Sodium 141 (135-145) meq/L Potassium 3.9 (3.8-5.2) meq/L Chloride 108 (98-112) meq/L Carbon Dioxide 25 (23-33) meq/L Anion Gap 8 (5-20) BUN 14 (7-22) mg/dL Creatinine 1.3 (0.70-1.50) mg/dL Estimated GFR 59 (>60 ml/min/1.73m(2)) BUN/Creatinine Ratio 10.76 (6-20) Glucose 140 H (78-110) mg/dL Calculated Osmolality 294.0 H (267-292) mOsm/kg Calcium 8.4 L (8.7-10.7) mg/dL NT-Pro-B Natriuret Pep 1670 H (0-125) PG/ML Discharge instruction Diet Activity as started Medications Active Medications Albuterol Sulfate (Proair Hfa Inhaler) 1 - 2 puff INH RTQ4H PRN PRN Reason: Shortness of Breath Aspirin (Aspirin Chewable Tab) 81 mg PO DAILY [facility] Last Admin: 09/04/18 08:48 Dose: 81 mg Calcium Carbonate (Tums) 1 - 2 tab PO QID PRN PRN Reason: Heartburn Enoxaparin Sodium (Lovenox Inj) 40 mg SUBCUT Q24H [facility] Last Admin: 09/04/18 08:47 Dose: 40 mg Furosemide (Lasix Inj) 40 mg IVP BID@0700,1300 [facility] Last Admin: 09/04/18 07:18 Dose: 40 mg Sodium Chloride (Normal Saline 0.9%) 25 mls @ 200 mls/hr IV .Post Infusion PRN PRN Reason: Flush Lidocaine HCl (Lidocaine Buffered Inj) 0.5 ml SUBD ONCE PRN PRN Reason: IV Starts Lisinopril (Prinivil) 40 mg PO DAILY [facility] Last Admin: 09/04/18 08:48 Dose: 40 mg Nicotine (Nicoderm Cq 21mg Patch) 1 patch TRANSDERM DAILY [facility] Last Admin: 09/04/18 08:53 Dose: 1 patch Non-Formulary Medication (Budesonide/Formoterol Fumarate [Symbicort 160-4.5 Mcg Inhaler]) 2 puff INH RTBID [facility] Last Admin: 09/03/18 21:19 Dose: Not Given Ondansetron HCl (Zofran Inj) 4 mg IVP Q4H PRN PRN Reason: NAUSEA / VOMITING Potassium Chloride (Klor-Con) 20 meq PO DAILY [facility] Last Admin: 09/04/18 08:47 Dose: 20 meq Sertraline HCl (Zoloft) 25 mg PO DAILY [facility] Last Admin: 09/04/18 08:48 Dose: 25 mg Follow-up per [facility] post discharge. Condition at transfer was stable for transfer Exam - Vitals Vital Signs: Vital Signs Temperature 97.4 F Temperature Source Temporal Artery Scan Pulse Rate [Pulse Oximeter] 102 Pulse Rate 99 Respiratory Rate 20 Blood Pressure [Right Arm] 143/111 Blood Pressure [Left Arm] 159/119 Blood Pressure 145/108 Pulse Ox 93 Oxygen Flow Rate 4 Oxygen Delivery Method Oxymask Height 5 ft 8 in Weight 243 lb Patient Problems - Patient Problem List (1) CHF (congestive heart failure) Current Visit: Yes Status: Acute Code(s): I50.9 - Heart failure, unspecified Qualifiers: Heart failure type: unspecified Heart failure chronicity: acute Qualified Code(s): I50.9 - Heart failure, unspecified Category: Medical (2) HTN (hypertension) Current Visit: Yes Status: Acute Code(s): I10 - Essential (primary) hypertension Qualifiers: Hypertension type: essential hypertension Qualified Code(s): I10 - Essential (primary) hypertension Category: Medical (3) Tobacco abuse Current Visit: Yes Status: Acute Code(s): Z72.0 - Tobacco use Category: Medical (4) Obesity Current Visit: Yes Status: Acute Code(s): E66.9 - Obesity, unspecified Qualifiers: Obesity type: due to excess calories Obesity classification: adult class 2 (BMI 35 - 39.9) Serious obesity comorbidity presence: with serious comorbidity Body mass index: BMI 38.0-38.9 Qualified Code(s): E66.01 - Morbid (severe) obesity due to excess calories; Z68.38 - Body mass index (BMI) 38.0-38.9, adult Category: Medical (5) Chest pain Current Visit: Yes Status: Acute Code(s): R07.9 - Chest pain, unspecified Qualifiers: Chest pain type: unspecified Qualified Code(s): R07.9 - Chest pain, unspecified Category: Medical
== END 2018-09-04 15:26 | disposition short-term general hospital (02) | DRG 293 ==
LOC: MED/SURG 19:51 → ER 19:51 → MED/SURG 09-03 10:33
PROVIDERS: ADMIT Family Medicine; ATTEND Family Medicine